=== PATIENT | female | born 1980 | race Asian ===

== ENCOUNTER 2017-06-23 15:05 | Emergency (ER) | payer OTHER, BC ==
[~2017-06-23] VITALS: Ht 162.6 cm; Wt 47.8 kg
[2017-06-23 16:52] LABS: ADD MIUA? NO; BILIRUBIN NEGATIVE; BLOOD NEGATIVE; COLOR YELLOW ((YELLOW)); GLUCOSE (STRIP) NEGATIVE; KETONES 20; LEUKOCYTES NEGATIVE; NITRITE NEGATIVE; PROTEIN (STRIP) NEGATIVE; UCUL ADDED? NO; UROBILINOGEN 0.2 MG/DL (0.2-1.0)
[2017-06-23 17:07] VITALS: BP 120/78
== END 2017-06-23 17:17 | disposition home or self-care (01) ==
LOC: EDBD 15:05 → EME 15:05
PROVIDERS: Nurse Practitioner Family
DX: O9A.212 Injury, poisoning and certain other consequences of external causes complicating pregnancy, second trimester (principal); S16.1XXA Strain of muscle, fascia and tendon at neck level, initial encounter; R07.9 Chest pain, unspecified; R51 Headache; V49.50XA Passenger injured in collision with unspecified motor vehicles in traffic accident, initial encounter; W22.12XA Striking against or struck by front passenger side automobile airbag, initial encounter; Y92.410 Unspecified street and highway as the place of occurrence of the external cause; O99.412 Diseases of the circulatory system complicating pregnancy, second trimester; I45.6 Pre-excitation syndrome; Z3A.16 16 weeks gestation of pregnancy
CPT/HCPCS: 72040; 81003; 99281; 99284